=== PATIENT | female | born 1990 | race Caucasian/White ===

== ENCOUNTER 2018-09-11 09:34 | Emergency (ER) | payer OTHER ==
[~2018-09-11] VITALS: Ht 152.4 cm; Wt 47.6 kg
[~2018-09-11 09:34] MED LIST: ACET325 PO; ALPR.5 PO; ALPR1 PO; AMOX250; AMOX250 PO; AMOX500 PO; Amoxicillin500 MG PO; BIRTH CONTROL PILL; Bactrim Ds Tab1 EACH PO; CEPH500 PO; CIPR500 PO; CYCL10 PO; DIPATR PO; HYDACE5 PO; HYDHCL10 PO; HYDPAM50 PO; IBUP800 PO; LAMO100 PO; LAMO25 PO; LAMO50 PO; LAMOTRIGINE PO; LORA1 PO; MICO200S PV; Macrobid 100 M100 MG PO; NAPR550 PO; Naprosyn375 MG PO; Naprosyn500 MG PO; Norco 5-325 Ta1 EACH PO; OMEP10ER; ONDA4 PO; ONDA4ODT MM; OXYACE5T PO; PENICILLAMINE 250 MG; PENVK500; PERM5TC TOP; PROM25; PROM25 PO; Peridex480 ML SS; Permethrin60 GM TP; RANI150 PO; RXLORA1 PO; RXOXYACE PO; SERT50 PO; SULTRIDS PO; TOPI50 PO; Veetids 500500 MG PO; Verotin-Gr Cap1 EACH PO; ZOLOFT; Zoloft50 MG PO; [UNRECOGNIZED DRUG - OTHER]; [UNRECOGNIZED DRUG - OTHER]; [UNRECOGNIZED DRUG - REMARK]
[2018-09-11] MEDS ORDERED: IBUP400 PO (09:50)
[2018-09-11] MEDS ORDERED: Norco 5-325 Ta1 EACH PO (09:51)
[2018-09-11] MEDS ORDERED: AMOCLA500 PO (09:51)
== END 2018-09-11 10:30 | disposition home or self-care (01) ==
LOC: ER 09:34
DX: K04.7 Periapical abscess without sinus (principal); Z91.048 Other nonmedicinal substance allergy status; Z79.899 Other long term (current) drug therapy; Z87.891 Personal history of nicotine dependence
CPT/HCPCS: 99283

== ENCOUNTER → 2019-04-21 | Outpatient (CLI) | payer OTHER ==
[~2019-04-21] MED LIST changes: +AMOCLA500 PO; +IBUP400 PO
[2019-04-25 16:06] LABS: HPV 16 Negative (Negative); HPV 18 Negative (Negative); HPV OTHER HR TYPES Positive (Negative)
== END ==
LOC: LAB SHORT 19:39 → LAB 19:39
PROVIDERS: Registered Nurse Community Health
DX: Z30.011 Encounter for initial prescription of contraceptive pills (principal); R87.610 Atypical squamous cells of undetermined significance on cytologic smear of cervix (ASC-US); Z86.19 Personal history of other infectious and parasitic diseases
CPT/HCPCS: 87624; 87625; G0123

== ENCOUNTER → 2020-07-11 | Outpatient (CLI) | payer OTHER ==
[2020-07-13 15:09] LABS: HPV 16 Negative (Negative); HPV 18 Negative (Negative); HPV OTHER HR TYPES Positive (Negative)
== END | disposition home or self-care (01) ==
LOC: LAB SHORT 18:12
PROVIDERS: Nurse Practitioner
DX: Z12.4 Encounter for screening for malignant neoplasm of cervix (principal); R87.810 Cervical high risk human papillomavirus (HPV) DNA test positive
CPT/HCPCS: 87624; G0123

== ENCOUNTER → 2020-10-17 | Outpatient (CLI) | payer OTHER | LOC: LAB SHORT 08:24 | DX: D06.1 Carcinoma in situ of exocervix (principal) | CPT/HCPCS: 88305 ==

== ENCOUNTER 2020-11-14 09:18 | Day surgery (SDC) | payer OTHER ==
[~2020-11-14] VITALS: Ht 152.4 cm; Wt 61.6 kg
[2020-11-14] MEDS ORDERED: ASCO500 (10:24)
== END 2020-11-14 12:32 | disposition home or self-care (01) ==
LOC: ORSCSDS 09:18
PROVIDERS: Obstetrics & Gynecology
PROC: 0UBC7ZX Excision of Cervix, Via Natural or Artificial Opening, Diagnostic (ICD-10-PCS; principal; 2020-11-14 11:00)
DX: D06.0 Carcinoma in situ of endocervix (principal); F32.9 Major depressive disorder, single episode, unspecified; F43.10 Post-traumatic stress disorder, unspecified
CPT/HCPCS: 84703; 88305; J0171; J1100; J1885; J2405; J2704; J3010; J7120

== ENCOUNTER → 2021-04-25 | Outpatient (CLI) | payer OTHER ==
[~2021-04-25] MED LIST changes: +ASCO500
== END ==
LOC: LAB SHORT 15:19 → LAB 15:19
DX: R30.9 Painful micturition, unspecified (principal)
CPT/HCPCS: 87086

== ENCOUNTER → 2021-10-03 | Outpatient (CLI) | payer OTHER ==
[2021-10-05 03:10] LABS: CHLAMYDIA TRACHOMATIS, NAA Negative (Negative)
[2021-10-07 14:09] LABS: HPV 16 Negative (Negative); HPV 18 Negative (Negative); HPV OTHER HR TYPES Negative (Negative)
== END | disposition home or self-care (01) ==
LOC: LAB 11:48 → LAB SHORT 11:48
PROVIDERS: Registered Nurse Community Health
DX: Z12.4 Encounter for screening for malignant neoplasm of cervix (principal)
CPT/HCPCS: 87491; 87591; 87624; G0123

== ENCOUNTER → 2022-04-15 | Outpatient (CLI) | payer OTHER | END | disposition home or self-care (01) | LOC: LAB SHORT 13:39 → LAB 13:39 | DX: Z34.91 Encounter for supervision of normal pregnancy, unspecified, first trimester (principal) | CPT/HCPCS: 87081; 87150 ==

== ENCOUNTER 2022-04-22 09:02 | Inpatient (IN) | payer OTHER ==
[~2022-04-22] VITALS: Ht 152.4 cm; Wt 26.0 kg
[2022-04-22] MEDS ORDERED: ONDA4 (11:09)
[2022-04-22 12:03] LABS: BASOPHILS ABSOLUTE AUTO 0.04 K/mm3 (0.00-0.23); BASOPHILS PERCENT AUTO 0 % (0-2); EOSINOPHILS ABSOLUTE AUTO 0.06 K/mm3 (0.00-0.68); EOSINOPHILS PERCENT AUTO 1 % (0-6); Hematocrit 32.4 % (33.0-51.0); Hemoglobin 10.4 g/dL (11.5-16.0); IMMATURE GRAN ABSOLUTE AUTO 0.04 K/mm3 (0.00-0.10); IMMATURE GRAN PERCENT AUTO 0 % (0-1); LYMPHOCYTES ABSOLUTE AUTO 2.26 K/mm3 (0.84-5.20); LYMPHOCYTES PERCENT AUTO 22 % (21-46); MONOCYTES ABSOLUTE AUTO 0.98 K/mm3 (0.16-1.47); MONOCYTES PERCENT AUTO 9 % (4-13); Mean Corpuscular HGB 23.7 pg (26.0-34.0); Mean Corpuscular HGB Conc 32.1 g/dL (31.5-36.5); Mean Corpuscular Volume 74 fL (80-100); NEUTROPHILS ABSOLUTE AUTO 7.07 K/mm3 (1.96-9.15); NEUTROPHILS PERCENT AUTO 68 % (41-73); Platelet Count 319 K/mm3 (150-400); RDW Coefficient Variation 13.8 % (11.7-14.2); RDW Standard Deviation 36.8 fL (35.1-46.3); Red Blood Cell Count 4.39 M/mm3 (3.80-5.20); White Blood Cell Count 10.45 K/mm3 (4.00-11.30)
[2022-04-22 12:56] LABS: PCO2 Cord - Arterial 51.1 mmHg (40-50); pH Cord - Arterial 7.31 (7.28-7.35)
[2022-04-22 12:59] LABS: PCO2 Cord - Venous 41.6 mmHg (40-50); PO2 Cord - Venous 24.1 mmHg (28-32); pH Umbilical Cord - Venous 7.37 (7.26-7.35)
--- NOTE | 2022-04-22 13:03 | NUR ---
04/22/22 1303 Felicia,Sheela Romero VIABLE FEMALE BORN [birth year]36. WT 6LB 7 OZ; HEAD 13.25; CHEST 12.5IN; LENGTH 19 IN. CORD SEGMENT FOR GASES SENT WITH RT RICCI MILLER. CORD BLOOD GIVEN TO FEI RENEE. FALLOPIAN TUBES A:LEFT TUBE, B: RIGHT TUBE, TO PATHOLOGY.
[2022-04-23 06:12] LABS: BASOPHILS ABSOLUTE AUTO 0.04 K/mm3 (0.00-0.23); BASOPHILS PERCENT AUTO 0 % (0-2); EOSINOPHILS ABSOLUTE AUTO 0.14 K/mm3 (0.00-0.68); EOSINOPHILS PERCENT AUTO 1 % (0-6); Hematocrit 28.9 % (33.0-51.0); Hemoglobin 9.3 g/dL (11.5-16.0); IMMATURE GRAN ABSOLUTE AUTO 0.07 K/mm3 (0.00-0.10); IMMATURE GRAN PERCENT AUTO 1 % (0-1); LYMPHOCYTES ABSOLUTE AUTO 2.02 K/mm3 (0.84-5.20); LYMPHOCYTES PERCENT AUTO 13 % (21-46); MONOCYTES PERCENT AUTO 8 % (4-13); Mean Corpuscular HGB 23.7 pg (26.0-34.0); Mean Corpuscular HGB Conc 32.2 g/dL (31.5-36.5); Mean Corpuscular Volume 74 fL (80-100); Mean Platelet Volume 10.2 fL (9.1-12.4); NEUTROPHILS ABSOLUTE AUTO 11.85 K/mm3 (1.96-9.15); NEUTROPHILS PERCENT AUTO 77 % (41-73); Platelet Count 266 K/mm3 (150-400); RDW Coefficient Variation 13.8 % (11.7-14.2); RDW Standard Deviation 36.8 fL (35.1-46.3); Red Blood Cell Count 3.92 M/mm3 (3.80-5.20); White Blood Cell Count 15.42 K/mm3 (4.00-11.30)
[2022-04-24] MEDS ORDERED: IBUP800 PO (10:12)
[2022-04-24] MEDS ORDERED: Percocet 5-3251 EACH PO (10:12)
[2022-04-24] MEDS ORDERED: Colace100 MG PO (10:13)
--- NOTE | 2022-04-24 10:50 | NUR ---
DISCHARGED TO HOME WITH NB PT GOING TO TOLL BOOTH OPERATOR RX NOW AT PHARMACY
== END 2022-04-24 10:49 | disposition home or self-care (01) | DRG 785 ==
LOC: BC 09:02 → OBS 09:02 → BC 10:46
PROVIDERS: ADMIT Family Medicine
PROC: 10D00Z1 Extraction of Products of Conception, Low, Open Approach (ICD-10-PCS; principal; 2022-04-22 11:00)
PROC: 0UB70ZZ Excision of Bilateral Fallopian Tubes, Open Approach (ICD-10-PCS; 2022-04-22 11:00)
DX: O34.211 Maternal care for low transverse scar from previous cesarean delivery (principal); Z37.0 Single live birth; N73.6 Female pelvic peritoneal adhesions (postinfective); O34.93 Maternal care for abnormality of pelvic organ, unspecified, third trimester; Z3A.37 37 weeks gestation of pregnancy; Z90.49 Acquired absence of other specified parts of digestive tract; Z30.2 Encounter for sterilization; Z98.890 Other specified postprocedural states; Z79.899 Other long term (current) drug therapy; Z91.048 Other nonmedicinal substance allergy status; Z86.69 Personal history of other diseases of the nervous system and sense organs
CPT/HCPCS: 36415; 59025; 82803; 85025; 86850; 86900; 86901; 87210; 88302; A9270; J0690; J1885; J2370; J2405; J2704; J2765; J3010; J7120

== ENCOUNTER 2023-03-02 18:15 | Emergency (ER) | payer OTHER ==
[~2023-03-02] VITALS: Ht 152.4 cm; Wt 47.6 kg
[~2023-03-02 18:15] MED LIST changes: +Colace100 MG PO; +ONDA4; +Percocet 5-3251 EACH PO
[2023-03-02 18:40] VITALS: BP 124/92
== END 2023-03-02 21:12 | disposition home or self-care (01) ==
LOC: ER 18:15
DX: M54.6 Pain in thoracic spine (principal); Z91.09 Other allergy status, other than to drugs and biological substances
CPT/HCPCS: 72070; 96372; 99283-25; A9270; J1170

== ENCOUNTER 2023-03-03 18:27 | Emergency (ER) | payer OTHER ==
[~2023-03-03] VITALS: Ht 152.4 cm; Wt 49.9 kg
[2023-03-03 19:35] LABS: BASOPHILS ABSOLUTE AUTO 0.03 K/mm3 (0.00-0.23); BASOPHILS PERCENT AUTO 0 % (0-2); EOSINOPHILS ABSOLUTE AUTO 0.01 K/mm3 (0.00-0.68); EOSINOPHILS PERCENT AUTO 0 % (0-6); Hematocrit 38.2 % (33.0-51.0); Hemoglobin 12.3 g/dL (11.5-16.0); IMMATURE GRAN ABSOLUTE AUTO 0.03 K/mm3 (0.00-0.10); IMMATURE GRAN PERCENT AUTO 0 % (0-1); LYMPHOCYTES ABSOLUTE AUTO 1.24 K/mm3 (0.84-5.20); LYMPHOCYTES PERCENT AUTO 11 % (21-46); MONOCYTES ABSOLUTE AUTO 0.27 K/mm3 (0.16-1.47); MONOCYTES PERCENT AUTO 2 % (4-13); Mean Corpuscular HGB 25.6 pg (26.0-34.0); Mean Corpuscular HGB Conc 32.2 g/dL (31.5-36.5); Mean Corpuscular Volume 80 fL (80-100); Mean Platelet Volume 10.1 fL (9.1-12.4); NEUTROPHILS ABSOLUTE AUTO 9.45 K/mm3 (1.96-9.15); NEUTROPHILS PERCENT AUTO 86 % (41-73); Platelet Count 345 K/mm3 (150-400); RDW Standard Deviation 43.7 fL (35.1-46.3); White Blood Cell Count 11.03 K/mm3 (4.00-11.30)
[2023-03-03 20:11] LABS: Albumin, Blood 3.9 g/dL (3.4-5.0); Albumin/Globulin Ratio 1.1 (0.8-1.8); Bilirubin, Total 0.3 mg/dL (0.1-1.0); Calcium, Blood 8.7 mg/dL (8.5-10.1); Creatinine, Blood 0.53 mg/dL (0.40-1.00); Globulin, Blood 3.4 g/dL (2.2-4.0); Potassium, Blood 4.2 mmol/L (3.5-5.5); Total Protein, Blood 7.3 g/dL (6.4-8.2)
[2023-03-03 20:27] VITALS: BP 115/79
== END 2023-03-03 22:26 | disposition left against medical advice (07) ==
LOC: ER 18:27
PROVIDERS: Student in an Organized Health Care Education/Training Program
DX: M54.9 Dorsalgia, unspecified (principal); Z53.21 Procedure and treatment not carried out due to patient leaving prior to being seen by health care provider
CPT/HCPCS: 80053; 85025; 99282

== ENCOUNTER 2023-03-11 16:11 | Emergency (ER) | payer OTHER ==
[~2023-03-11] VITALS: Ht 152.4 cm; Wt 47.6 kg
[2023-03-11 16:28] VITALS: BP 120/82
== END 2023-03-11 18:19 | disposition left against medical advice (07) ==
LOC: ER 16:11
DX: M54.50 Low back pain, unspecified (principal); Z53.29 Procedure and treatment not carried out because of patient's decision for other reasons
CPT/HCPCS: 99281

== ENCOUNTER → 2025-03-06 | Outpatient (CLI) | payer OTHER ==
[2025-03-06 15:58] LABS: BASOPHILS ABSOLUTE AUTO 0.04 K/mm3 (0.00-0.23); BASOPHILS PERCENT AUTO 1 % (0-2); EOSINOPHILS ABSOLUTE AUTO 0.09 K/mm3 (0.00-0.68); EOSINOPHILS PERCENT AUTO 1 % (0-6); Hematocrit 33.5 % (33.0-51.0); Hemoglobin 10.9 g/dL (11.5-16.0); IMMATURE GRAN ABSOLUTE AUTO 0.02 K/mm3 (0.00-0.10); IMMATURE GRAN PERCENT AUTO 0 % (0-1); LYMPHOCYTES ABSOLUTE AUTO 2.03 K/mm3 (0.84-5.20); LYMPHOCYTES PERCENT AUTO 26 % (21-46); MONOCYTES ABSOLUTE AUTO 0.59 K/mm3 (0.16-1.47); MONOCYTES PERCENT AUTO 8 % (4-13); Mean Corpuscular HGB Conc 32.5 g/dL (31.5-36.5); Mean Corpuscular Volume 80 fL (80-100); NEUTROPHILS ABSOLUTE AUTO 4.92 K/mm3 (1.96-9.15); NEUTROPHILS PERCENT AUTO 64 % (41-73); NRBC ABSOLUTE 0.00 K/mm3 (0.00-0.02); NRBC Auto 0.0 /100 WBC (0.0-0.2); Platelet Count 271 K/mm3 (150-400); RDW Coefficient Variation 15.3 % (11.7-14.2); RDW Standard Deviation 44.5 fL (35.1-46.3)
[2025-03-06 16:29] LABS: Alanine Aminotransfer (ALT/SGP 18.0 U/L (12-78); Albumin, Blood 3.6 g/dL (3.4-5.0); Albumin/Globulin Ratio 1.1 (0.8-1.8); Anion Gap 14.0 mmol/L (3-11); Aspartate Aminotrans (AST/SGOT 23.0 U/L (12-37); Bilirubin, Total 0.4 mg/dL (0.1-1.0); Blood Urea Nitrogen 7.0 mg/dL (8-24); CO2, Blood 26.0 mmol/L (21-32); Calcium, Blood 8.3 mg/dL (8.5-10.1); Chloride, Blood 102.0 mmol/L (98-108); Creatinine, Blood 0.69 mg/dL (0.40-1.00); Globulin, Blood 3.4 g/dL (2.2-4.0); Glucose, Blood 102.0 mg/dL (70-99); Potassium, Blood 4.1 mmol/L (3.5-5.5); Sodium, Blood 138.0 mmol/L (136-145); Total Protein, Blood 7.0 g/dL (6.4-8.2)
== END ==
LOC: LAB 15:54 → LAB SHORT 15:54
PROVIDERS: Physician Assistant
DX: R10.9 Unspecified abdominal pain (principal)
CPT/HCPCS: 80053; 83690; 85025